=== PATIENT | male | born 1980 | race American Indian/Alaskan Native ===

== ENCOUNTER 2018-11-28 01:29 | Emergency (ER) | payer SELFPAY ==
[2018-11-28] MEDS ORDERED: KETOROLAC 30 MG/1 ML INJ IM ONE (02:39)
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
[2018-11-28 03:33] VITALS: BP 142/91
== END 2018-11-28 03:32 | disposition home or self-care (01) ==
LOC: ED 01:29
DX: S39.012A Strain of muscle, fascia and tendon of lower back, initial encounter (principal); S86.912A Strain of unspecified muscle(s) and tendon(s) at lower leg level, left leg, initial encounter; Z79.899 Other long term (current) drug therapy; V49.49XA Driver injured in collision with other motor vehicles in traffic accident, initial encounter; Y93.89 Activity, other specified; Y92.410 Unspecified street and highway as the place of occurrence of the external cause; Y99.8 Other external cause status
CPT/HCPCS: 96372; 99282; J1885